=== PATIENT | male | born 1935 | race Caucasian/White ===

== ENCOUNTER 2017-12-04 09:16 | Outpatient (CLI) | payer MEDICARE ==
[2017-12-04 10:37] LABS: INR-International Normal Ratio 1.1; PTT 26.6 SEC (22.9-36.1); Prothrombin Time 14.2 SEC (12.0-14.7)
[2017-12-04 10:51] LABS: ALT (SGPT) 23 U/L (8-55); AST (SGOT) 34 U/L (5-34); Albumin 4.4 g/dL (3.4-4.8); Alkaline Phosphatase 55 U/L (40-150); Anion Gap 14 mmol/L (10-20); BUN (Urea Nitrogen) 30 mg/dL (8.4-25.7); Bilirubin, Total 0.5 mg/dL (0.2-1.2); Calc. Creatinine Clearance 0 mL/min (70-130); Calcium 9.3 mg/dL (7.8-10.44); Carbon Dioxide 21 mmol/L (23-31); Chloride 107 mmol/L (98-107); Estimated GFR-MDRD 32; Globulin 3.6 g/dL (2.4-3.5); Glucose 117 mg/dL (83-110); Potassium 5.7 mmol/L (3.5-5.1); Sodium 136 mmol/L (136-145)
[2017-12-04 10:54] LABS: #Basophils 0.1 thou/uL (0.0-0.2); #Eosinphils 0.3 thou/uL (0.0-0.7); #Monocytes 0.8 thou/uL (0.11-0.59); #Neutrophils 3.5 thou/uL (1.40-6.50); %Eosinophils 4.8 % (0.0-10.0); %Lymphocytes 29.6 % (21.0-51.0); %Monocytes 12.4 % (0.0-10.0); %Neutrophils 52.2 % (42.0-75.0); Hemoglobin 10.7 g/dL (14.0-18.0); Hypochromia SLIGHT = 6-15 cells (100X) (0-5/hpf); MDiff Complete? YES; Mean Corpuscular HGB CONC 31.8 g/dL (32.0-36.0); Mean Corpuscular Hemoglobin 23.7 pg (27.0-31.0); Mean Corpuscular Volume 74.5 fL (78.0-98.0); Mean Platelet Volume 9.9 fL (7.4-10.4); PLT Morphology Comment Appears Adequate; Platelet Count 294 thou/uL (130-400); Polychromasia SLIGHT = 2-3 cells (100X) (0-2/hpf); RBC Distribution Width 15.3 % (11.5-14.5); Red Blood Cell (RBC) Count 4.52 mill/uL (4.70-6.10); White Blood Cell (WBC) Count 6.7 thou/uL (4.8-10.8)
== END 2017-12-04 09:17 | disposition home or self-care (01) ==
LOC: LABBT 09:16
PROVIDERS: ATTEND Internal Medicine Cardiovascular Disease
DX: Z01.812 Encounter for preprocedural laboratory examination (principal); I20.9 Angina pectoris, unspecified; R94.31 Abnormal electrocardiogram [ECG] [EKG]
CPT/HCPCS: 80053; 85025; 85610; 85730

== ENCOUNTER 2017-12-28 05:38 | Inpatient (IN) | payer MEDICARE ==
[2017-12-27 10:28] VITALS: BMI 28.8
[2017-12-28] MEDS ORDERED: Albumin 5% 500 ML ONE (06:18)
[2017-12-28] MEDS ORDERED: Midazolam HCl 2 mg/2 ml Vial ONE (06:37)
[2017-12-28] MEDS ORDERED: Fentanyl 100 MCG/2 ML VIAL ONE (06:37)
[2017-12-28] MEDS ORDERED: Midazolam HCl 5 mg/5 ml Vial ONE (06:38)
[2017-12-28] MEDS ORDERED: Vecuronium 10 MG VIAL ONE ×2 (06:38→15:39)
[2017-12-28] MEDS ORDERED: Dexmedetomidine 200 MCG/2 ML VIAL ONE (06:38)
[2017-12-28 06:58] LABS: INR-International Normal Ratio 1.1; PTT 34.1 SEC (22.9-36.1); Prothrombin Time 14.1 SEC (12.0-14.7)
[2017-12-28] MEDS ORDERED: Heparin 10,000 UNITS/1 ML VIAL 30,000 UNITS in Sodium Chloride 0.9% 1,000 ML FS SCH (07:00)
[2017-12-28 07:09] LABS: Anion Gap 13 mmol/L (10-20); BUN (Urea Nitrogen) 19 mg/dL (8.4-25.7); Calc. Creatinine Clearance 50 mL/min (70-130); Calcium 9.2 mg/dL (7.8-10.44); Carbon Dioxide 24 mmol/L (23-31); Chloride 107 mmol/L (98-107); Estimated GFR-MDRD 49; Glucose 95 mg/dL (83-110); Potassium 4.6 mmol/L (3.5-5.1); Sodium 139 mmol/L (136-145)
[2017-12-28 07:15] LABS: #Basophils 0.1 thou/uL (0.0-0.2); #Eosinphils 0.5 thou/uL (0.0-0.7); #Lymphocytes 2.4 thou/uL (1.20-3.40); #Monocytes 0.7 thou/uL (0.11-0.59); %Basophils 1.2 % (0.0-1.0); %Eosinophils 6.2 % (0.0-10.0); %Lymphocytes 31.9 % (21.0-51.0); %Neutrophils 51.7 % (42.0-75.0); Mean Corpuscular HGB CONC 29.3 g/dL (32.0-36.0); Mean Corpuscular Hemoglobin 21.9 pg (27.0-31.0); Mean Platelet Volume 8.8 fL (7.4-10.4); Platelet Count 414 thou/uL (130-400); RBC Distribution Width 16.4 % (11.5-14.5); Red Blood Cell (RBC) Count 4.55 mill/uL (4.70-6.10); White Blood Cell (WBC) Count 7.7 thou/uL (4.8-10.8)
[2017-12-28 07:42] LABS: Hypochromia SLIGHT = 6-15 cells (100X) (0-5/hpf); MDiff Complete? YES; Microcytosis SLIGHT = 6-15 cells (100X) (0-5/hpf); Ovalocytes SLIGHT = 2-5 cells (100X) (0-1/hpf); PLT Morphology Comment Appears Increased; Polychromasia SLIGHT = 2-3 cells (100X) (0-2/hpf)
--- NOTE | 2017-12-28 08:23 | RAD ---
PORTABLE CHEST: History: Pre op. FINDINGS: Heart size is enlarged. Mediastinal structures are unremarkable. The lungs are clear of infiltrates. No signs of failure. IMPRESSION: Mild cardiomegaly. POS: [facility]
[2017-12-28] MEDS ORDERED: Fentanyl 100 MCG/2 ML VIAL SLOW IVP PRN ×2 (11:15)
[2017-12-28] MEDS ORDERED: Mag-Al 1200 mg/1200 mg/30 ML UDCUP PO PRN (11:15)
[2017-12-28] MEDS ORDERED: Promethazine HCl 25 MG/ML VIAL IM PRN (11:15)
[2017-12-28] MEDS ORDERED: Potassium Chloride 20 MEQ/100 ML PREMIX BAG IVPB PRN (11:15)
[2017-12-28] MEDS ORDERED: Ondansetron HCl/PF 4 MG/2 ML Vial IVP PRN (11:15)
[2017-12-28] MEDS ORDERED: Bisacodyl 5 MG TAB PO PRN (11:15)
[2017-12-28] MEDS ORDERED: Post-Op Insulin Drip Protocol IVPB ONE (11:15)
[2017-12-28] MEDS ORDERED: Nitroglycerin 50 MG/250 ML BOT 250 ML IVPB PRN (11:15)
[2017-12-28] MEDS ORDERED: Hetastarch 6% 500 ML 500 ML IVPB PRN (11:15)
[2017-12-28] MEDS ORDERED: Norepinephrine 8 MG/0.9% NS 250 ML IVPB PRN (11:15)
[2017-12-28] MEDS ORDERED: Bisacodyl 10 MG SUPP PR PRN (11:15)
[2017-12-28] MEDS ORDERED: Acetaminophen 325 MG TAB PO PRN (11:15)
[2017-12-28] MEDS ORDERED: hydrALAZINE 20 MG/ML VIAL SLOW IVP PRN (11:15)
[2017-12-28] MEDS ORDERED: Magnesium 2 GM/NS 0.9% 100 ML 2 GM in Premix Bag 1 BAG IVPB SCH (11:15)
[2017-12-28] MEDS ORDERED: Guaifenesin DM 100-10/5 ML UDCUP PO PRN (11:15)
--- NOTE | 2017-12-28 11:20 | OP ---
DATE OF PROCEDURE: 12/28/2017 PREOPERATIVE DIAGNOSES: Coronary artery disease/hypertension/hyperlipidemia. POSTOPERATIVE DIAGNOSES: Coronary artery disease/hypertension/hyperlipidemia. PROCEDURE: Coronary artery bypass grafting x3: 1. Left internal mammary artery 2.0 mm distal LAD -- good conduit and target. 2. Reverse saphenous vein to 2.0 mm diagonal -- good conduit and target. 3. Reverse saphenous vein to 1.25 mm OM1 -- good conduit, small target. This is not a redo target. SURGEON: Jasmeet Stoll M.D. and Mendoza Lozano M.D. ANESTHESIA: General endotracheal -- Naomi Ma M.D. PUMP TIME: 70 minutes. CROSS-CLAMP TIME: 32 minutes. LOW CORE TEMP: 32-degree Celsius. BEER MAKER: Jose Antonio Boucher. DRAINS: 24-Korean chest tubes x2. DRIPS: None. TRANSFUSIONS: None. DESCRIPTION OF PROCEDURE: After operative consent was obtained, the patient was brought to operating room and placed in the supine position on the operating table. Appropriate anesthetic monitor was p laced and general endotracheal anesthesia induced. Chest, abdomen and legs were prepped and draped i n the usual sterile fashion. Left greater saphenous vein was harvested with endoscopic technique. T he wound was irrigated and closed in layers. Median sternotomy was performed. Left internal mammary artery was harvested as a pedicle graft. The patient was systemically heparinized. Distal pedicle was divided and infused with papaverine. Thymic fat and pericardium were divided with electrocautery . Pericardial stay sutures were placed. Aortic and atrial cannulation was performed. After adequat e heparinization, the patient was placed on cardiopulmonary bypass. Distal targets were marked. Aor tic cross-clamp was applied and antegrade sanguinous cardioplegic arrest obtained. One liter of ante grade cold cardioplegia was given. Topical cold solution was used. Reverse saphenous vein was anast omosed to the OM in end-to-side fashion with running 7-0 Prolene suture. Anastomosis was tested and was hemostatic. Reverse saphenous vein was anastomosed to the diagonal in end-to-side fashion with r unning 7-0 Prolene suture. Anastomosis was tested and was hemostatic. Mammary artery was brought th rough a window in the pericardium and anastomosed to the LAD in end-to-side fashion with running 7-0 Prolene suture. On release of mammary clamps, good hooding in the anastomosis and good distal flow. Pedicle was secured with interrupted 6-0 Prolene suture. Cross-clamp was removed and partial occlud ing clamp placed. Saphenous veins were anastomosed individual punch sites with running 6-0 Prolene s uture. Partial occluding clamp was removed and grafts deaired. Anastomoses were inspected for hemos tasis, which was good. The patient was warmed and weaned from cardiopulmonary bypass. After resumpt ion of sinus rhythm, good hemodynamics, temperature greater than 36.5, bypass was discontinued. Temple sfusions were given. Protamine was administered. Decannulation was performed. Pursestring sutures secured. Aortic cannulation site was reinforced with 4-0 Prolene suture. After adequate hemostasis had been obtained, vancomycin paste placed on the sternal edges. 24-Korean chest tubes were placed i n the mediastinum. The sternum was closed with #7 wire. Sternum was treated with platelet-rich plas ma. Wires twisted. Wounds were irrigated, treated with platelet-poor plasma and closed in multiple layers. Needle, sponge and instrument counts were all reported as correct at the end of the procedur e.
[2017-12-28 11:36] LABS: Actual Bicarbonate (HCO3a) 22.9 mEq/L (22-28); Calcium, Ionized 1.12 mmol/L (1.12-1.30); Carboxyhemoglobin (COHb) 2.1 gm% (0.0-3.0); O2 Tension (PaO2) 143.6 mmHg (> 60.0); Potassium - ABG Lab 5.13 mmol/L (3.70-5.30); pH, Arterial 7.39 (7.35-7.45)
[2017-12-28] MEDS ORDERED: Dextrose 5% in Water 1,000 ML IV PRN (11:37)
[2017-12-28] MEDS ORDERED: Dextrose 50% Abboject 50 ML SYRINGE SLOW IVP PRN (11:37)
[2017-12-28 11:40] LABS: Puncture Site ALINE
[2017-12-28] MEDS ORDERED: Insulin Regular 300 UNITS/3 ML VIAL ONE (11:44)
[2017-12-28 11:50] LABS: #Eosinphils 0.3 thou/uL (0.0-0.7); #Lymphocytes 1.4 thou/uL (1.20-3.40); #Monocytes 0.3 thou/uL (0.11-0.59); #Neutrophils 6.6 thou/uL (1.40-6.50); %Basophils 0.5 % (0.0-1.0); %Eosinophils 3.2 % (0.0-10.0); %Lymphocytes 15.9 % (21.0-51.0); %Neutrophils 77.4 % (42.0-75.0); Hemoglobin 7.6 g/dL (14.0-18.0); Mean Corpuscular HGB CONC 30.1 g/dL (32.0-36.0); Mean Corpuscular Hemoglobin 22.5 pg (27.0-31.0); Mean Corpuscular Volume 74.9 fL (78.0-98.0); Mean Platelet Volume 8.4 fL (7.4-10.4); Platelet Count 224 thou/uL (130-400); RBC Distribution Width 16.2 % (11.5-14.5); Red Blood Cell (RBC) Count 3.38 mill/uL (4.70-6.10); White Blood Cell (WBC) Count 8.5 thou/uL (4.8-10.8)
[2017-12-28] MEDS: D5 1/2 NS w/20 mEq KCL 1,000 ML IV SCH (11:53)
[2017-12-28] MEDS: Ketorolac Tromethamine 30 MG/ML VIAL IVP SCH ×3 (11:54→23:59)
[2017-12-28 11:57] LABS: INR-International Normal Ratio 1.4; PTT 32.2 SEC (22.9-36.1); Prothrombin Time 17.5 SEC (12.0-14.7)
[2017-12-28] MEDS: Insulin Regular 300 UNITS/3 ML VIAL SC PRN ×3 (12:03→20:15)
[2017-12-28 12:10] LABS: Anion Gap 9 mmol/L (10-20); BUN (Urea Nitrogen) 17 mg/dL (8.4-25.7); Calc. Creatinine Clearance 65 mL/min (70-130); Calcium 8.1 mg/dL (7.8-10.44); Carbon Dioxide 23 mmol/L (23-31); Chloride 112 mmol/L (98-107); Estimated GFR-MDRD 66; Glucose 140 mg/dL (83-110); Potassium 5.1 mmol/L (3.5-5.1); Sodium 139 mmol/L (136-145)
[2017-12-28 12:12] LABS: Hypochromia SLIGHT = 6-15 cells (100X) (0-5/hpf); MDiff Complete? YES; Microcytosis SLIGHT = 6-15 cells (100X) (0-5/hpf); Ovalocytes SLIGHT = 2-5 cells (100X) (0-1/hpf); PLT Morphology Comment Appears Adequate; Polychromasia SLIGHT = 2-3 cells (100X) (0-2/hpf)
--- NOTE | 2017-12-28 14:15 | RAD ---
SINGLE VIEW CHEST: Date: 12/28/17 COMPARISON: 12/28/17 at 0619 hours. HISTORY: Status post open heart surgery. FINDINGS: Single view of the chest shows an enlarged but stable cardiomediastinal silhouette. There is an endot jostin tube with its tip at the lower border of the clavicles. The patient is status post sternotomy . A central venous catheter is seen with its tip in the superior vena cava. There is a mediastinal dr ain and a left chest tube. A NG tube is seen in the stomach. There is obscurity of the left costophre maria l angle which may represent atelectasis or a small left pleural effusion. IMPRESSION: Appropriate position of lines and tubes status post sternotomy. POS: [facility]
[2017-12-28] MEDS: CEFAZOLIN/Water 2 GM/20 ML SYRINGE SLOW IVP SCH ×2 (14:23→21:04)
--- NOTE | 2017-12-28 15:26 | EKG ---
Test Reason : PREOP Blood Pressure : / mmHG Vent. Rate : 070 BPM Atrial Rate : 070 BPM P-R Int : 202 ms QRS Dur : 114 ms QT Int : 402 ms P-R-T Axes : 058 -14 -61 degrees QTc Int : 434 ms Normal sinus rhythm Inferior infarct , age undetermined Abnormal ECG No previous ECGs available Confirmed by JAVID ONOFRE, DR. Martinez ([id number]) on 12/28/2017 3:25:28 PM Referred By: Lino PEREZ Confirmed By:DR. Michelle HUA MD
--- NOTE | 2017-12-28 15:30 | EKG ---
Test Reason : POST CABG Blood Pressure : / mmHG Vent. Rate : 060 BPM Atrial Rate : 060 BPM P-R Int : 250 ms QRS Dur : 104 ms QT Int : 476 ms P-R-T Axes : 044 012 -71 degrees QTc Int : 476 ms Sinus rhythm with 1st degree A-V block Inferior infarct (cited on or before 28-DEC-2017) Abnormal ECG When compared with ECG of 28-DEC-2017 06:54, (Unconfirmed) NH interval has increased Confirmed by JAVID ONOFRE, DR. Martinez ([id number]) on 12/28/2017 3:30:33 PM Referred By: Lino PEREZ Confirmed By:DR. Michelle HUA MD
[2017-12-28] MEDS ORDERED: Protamine Sulfate 250 MG/25 ML VIAL ONE (15:39)
[2017-12-28] MEDS ORDERED: Sodium Bicarb 50 MEQ/50 ML VIAL ONE (15:39)
[2017-12-28] MEDS ORDERED: Nitroglycerin 50 MG/250 ML BOT ONE (15:39)
[2017-12-28] MEDS ORDERED: Magnesium 5 GM/10 ML VIAL ONE (15:39)
[2017-12-28] MEDS ORDERED: Potassium Chloride 60 MEQ/30 ML VIAL ONE (15:39)
[2017-12-28] MEDS ORDERED: Lidocaine 2% PF 100 mg/5 ml Syringe ONE (15:39)
[2017-12-28] MEDS ORDERED: Cardioplegic Soln 1,000 ML BAG ONE (15:39)
[2017-12-28] MEDS ORDERED: PHENYLEPHRINE-NS 100 MCG/ML 10 ML SYRINGE ONE (15:39)
[2017-12-28] MEDS ORDERED: Aminocaproic Acid 5 GM/20 ML VIAL ONE (15:39)
[2017-12-28] MEDS ORDERED: Calcium Chloride 1 GM/10 ML Abboject SYRINGE ONE (15:39)
[2017-12-28] MEDS ORDERED: Mannitol 12.5 GM/50 ML ONE (15:39)
[2017-12-28] MEDS ORDERED: Heparin 5,000 UNITS/ML VIAL ONE (15:39)
[2017-12-28] MEDS ORDERED: Papaverine 60 MG/2 ML VIAL ONE (15:39)
[2017-12-28] MEDS ORDERED: Heparin 30,000 units/30 ml VIAL ONE (15:39)
[2017-12-28] MEDS ORDERED: Thrombin 5000 UNITS/5 ML VIAL ONE (15:39)
[2017-12-28 17:02] LABS: Hemoglobin 8.9 g/dL (14.0-18.0)
[2017-12-28 17:11] LABS: Potassium 5.1 mmol/L (3.5-5.1)
[2017-12-28 17:37] LABS: Base Excess (BEa) -2.7 mEq/L (-2.0 to +3.0); CO2 Tension 31.8 mmHg (35.0-45.0); Calcium, Ionized 1.09 mmol/L (1.12-1.30); Carboxyhemoglobin (COHb) 1.1 gm% (0.0-3.0); Hemoglobin (Hb) 9.3 g/dL (14.0-18.0); O2 Tension (PaO2) 120.7 mmHg (> 60.0); Potassium - ABG Lab 4.83 mmol/L (3.70-5.30); Puncture Site ALINE; pH, Arterial 7.44 (7.35-7.45)
[2017-12-28] MEDS: Famotidine/PF 20 mg/2ml Vial SLOW IVP SCH (20:16)
--- NOTE | 2017-12-28 21:57 | CON ---
DATE OF CONSULTATION: 12/28/2017 HISTORY OF PRESENT ILLNESS: Mr. Read is an 82-year-old male who underwent coronary artery bypass grafting today. He had a PAULINO to his LAD, a saphenous vein to his diagonal, and saphenous vein to his OM1. There was a small target. He was transferred to ICU for further care. He is still sedated from surgery and evaluated him today. PAST MEDICAL HISTORY: Remarkable for lipid disorder and hypertension as well as back surgery in the past. ALLERGIES: He has no drug allergies. SOCIAL HISTORY: He is a non-smoker, nondrinker. FAMILY HISTORY: He has one son and one daughter. He is a former smoker. Apparently, his has . REVIEW OF SYSTEMS: 10 point system review completed, not obtainable. PHYSICAL EXAMINATION: GENERAL: He appeared comfortable. He was sedated from surgery. VITAL SIGNS: His blood pressure 114/58, heart rate 60, respiratory rate in the teens. He is afebrile. HEENT: Pupils react. Sclerae is anicteric. NECK: Supple without lymphadenopathy. LUNGS: Clear anteriorly. HEART: Regular rhythm. His chest tubes in place. ABDOMEN: Soft and nontender. EXTREMITIES: Without asymmetry. His feet were warm. LABORATORY DATA: Hemoglobin this morning is 7.6. He received blood and is 8.9 at 1647. He has not had significant bleeding out of his chest tubes. Electrolytes were remarkable only for some mild hyperchloremia with a chloride of 112, BUN was 17, creatinine was 1.07. IMPRESSION: Status post coronary artery bypass grafting, clinically stable. He should wean as per protocol. This is a 70-minute consult, with greater than 50% of the time spent on the unit coordinating care. GISSELLE
[2017-12-29 05:06] LABS: #Eosinphils 0.1 thou/uL (0.0-0.7); #Lymphocytes 1.4 thou/uL (1.20-3.40); #Monocytes 0.8 thou/uL (0.11-0.59); #Neutrophils 4.8 thou/uL (1.40-6.50); %Basophils 0.6 % (0.0-1.0); %Eosinophils 1.4 % (0.0-10.0); %Lymphocytes 20.2 % (21.0-51.0); %Neutrophils 66.8 % (42.0-75.0); Hemoglobin 8.3 g/dL (14.0-18.0); Mean Corpuscular HGB CONC 30.4 g/dL (32.0-36.0); Mean Corpuscular Hemoglobin 23.1 pg (27.0-31.0); Mean Corpuscular Volume 75.8 fL (78.0-98.0); Mean Platelet Volume 9.3 fL (7.4-10.4); Platelet Count 248 thou/uL (130-400); RBC Distribution Width 16.1 % (11.5-14.5); Red Blood Cell (RBC) Count 3.59 mill/uL (4.70-6.10); White Blood Cell (WBC) Count 7.1 thou/uL (4.8-10.8)
[2017-12-29 05:33] LABS: Anion Gap 8 mmol/L (10-20); BUN (Urea Nitrogen) 20 mg/dL (8.4-25.7); Calc. Creatinine Clearance 52 mL/min (70-130); Calcium 7.8 mg/dL (7.8-10.44); Carbon Dioxide 22 mmol/L (23-31); Chloride 113 mmol/L (98-107); Estimated GFR-MDRD 51; Glucose 121 mg/dL (83-110); Potassium 4.4 mmol/L (3.5-5.1); Sodium 139 mmol/L (136-145)
[2017-12-29] MEDS: Ketorolac Tromethamine 30 MG/ML VIAL IVP SCH ×2 (05:51→12:01)
[2017-12-29] MEDS: Insulin Regular 300 UNITS/3 ML VIAL SC PRN (05:52)
[2017-12-29] MEDS: CEFAZOLIN/Water 2 GM/20 ML SYRINGE SLOW IVP SCH (05:52)
[2017-12-29] MEDS: HYDROcodone/Acetaminophen 5/325 mg Tablet PO PRN ×3 (05:53→21:17)
[2017-12-29] MEDS ORDERED: Magnesium 2 GM/NS 0.9% 100 ML 2 GM in Premix Bag 1 BAG IVPB SCH (09:00)
[2017-12-29] MEDS ORDERED: Aspirin 325 MG TAB PO SCH (09:00)
--- NOTE | 2017-12-29 09:37 | RAD ---
AP CHEST: History: Status post heart surgery. Date: 12-29-17 Comparison: 12-28-17 FINDINGS: AP chest demonstrates interval extubation of the patient and removal of the NG tube. Again, left sided chest tube is seen. A right subclavian central line is again noted. Mediastinal surgical drains in place. Mild cardiomegaly is seen. Sternotomy wires are seen. There continues to be blunting of the left costophrenic angle compatible with a small left sided pleu ral effusion. IMPRESSION: 1. Post thoracotomy changes. 2. The patient has been extubated. NG tube has been removed. Otherwise, unchanged since the previous day's exam. POS: [facility]
[2017-12-29] MEDS ORDERED: Magnesium Sulfate 2 GM in Sodium Chloride 0.9% 100 ML IVPB SCH (10:00)
[2017-12-29] MEDS: D5 1/2 NS w/20 mEq KCL 1,000 ML IV SCH (10:10)
[2017-12-29] MEDS: Famotidine/PF 20 mg/2ml Vial SLOW IVP SCH ×2 (10:10→21:01)
[2017-12-29] MEDS ORDERED: Bisacodyl 10 MG SUPP PR PRN (12:10)
[2017-12-29] MEDS ORDERED: Artificial Tears 18 DROP/0.9 ML EA EYE PRN (12:10)
[2017-12-29] MEDS ORDERED: diphenhydrAMINE 25 MG CAP PO PRN (12:10)
[2017-12-29] MEDS ORDERED: Bisacodyl 5 MG TAB PO PRN (12:10)
[2017-12-29] MEDS ORDERED: Mag-Al 1200 mg/1200 mg/30 ML UDCUP PO PRN (12:10)
[2017-12-29] MEDS ORDERED: Guaifenesin DM 100-10/5 ML UDCUP PO PRN (12:10)
[2017-12-29] MEDS ORDERED: Mineral Oil ENEMA PR PRN (12:10)
[2017-12-29] MEDS ORDERED: Zolpidem Tartrate 5 MG TAB PO PRN (12:10)
[2017-12-29] MEDS ORDERED: Nitroglycerin 0.4 MG TAB (25 Tab Bottle) SL PRN (12:10)
--- NOTE | 2017-12-29 12:47 | PDOC.CTH ---
Cardiology Progress Note - Subjective He is doing well. Has not had a BM yet. - Objective Vital Signs Temp Pulse Ox 12/29/17 08:00 97 12/29/17 07:00 98.8 F 12/29/17 04:00 98.4 F 12/29/17 03:36 98 Weight 195 lb 12/28/17 12/29/17 12/30/17 06:59 06:59 06:59 Intake Total 1410.9 240 Output Total 2235 30 Balance -824.1 210 - Physical Examination General/Neuro: alert & oriented x3, NAD Neck: no JVD present Lungs: unlabored respirations Heart: RRR Abdomen: NT/ND Extremities: + edema B (1+) - Telemetry Telemetry Rhythm: NSR - Labs Result Diagrams: 12/29/17 04:40 12/29/17 04:40 - Assessment/Plan 1. Multivessel CAD. 2. S/P CABG, PAULINO to LAD, SVG to OM, SVG to Diagonal 3. HTN 4. HLP PLAN: - Aspirin/statin for life. - Will add low dose BB. - ACEI if BP allows in next few days. - Increase PT as tolerated.
[2017-12-29] MEDS: Ferrous Sulfate 325 MG TAB PO SCH (17:31)
[2017-12-29] MEDS: Docusate 100 MG CAP PO SCH (21:01)
--- NOTE | 2017-12-29 21:04 | PRG ---
DATE OF SERVICE: 12/29/2017 SUBJECTIVE: Ez Read did well overnight. He was weaned per protocol. OBJECTIVE: VITAL SIGNS: He is afebrile, heart rate 70, respiratory rate 16, oximetry is 95 on room air. LUNGS: Clear. HEART: Regular rhythm. ABDOMEN: Soft. Intake and output is negative 824. LABORATORY AND DIAGNOSTIC DATA: Chest radiograph done this morning is unchanged compared to yesterda y except for the removal of the tubes. White count 7.1, hemoglobin 8.3, platelets 248. Electrolytes are unremarkable except for mild increase in chloride. Creatinine is 1.34. IMPRESSION: Status post coronary bypass grafting, doing well. Will move out of the Critical Care Un it today.
[2017-12-30] MEDS: HYDROcodone/Acetaminophen 5/325 mg Tablet PO PRN ×2 (05:01→20:34)
[2017-12-30 05:22] LABS: #Eosinphils 0.1 thou/uL (0.0-0.7); #Lymphocytes 1.6 thou/uL (1.20-3.40); #Neutrophils 6.9 thou/uL (1.40-6.50); %Basophils 0.4 % (0.0-1.0); %Eosinophils 0.8 % (0.0-10.0); %Lymphocytes 16.3 % (21.0-51.0); %Monocytes 10.2 % (0.0-10.0); %Neutrophils 72.2 % (42.0-75.0); Hemoglobin 9.3 g/dL (14.0-18.0); Mean Corpuscular HGB CONC 28.9 g/dL (32.0-36.0); Mean Corpuscular Hemoglobin 22.4 pg (27.0-31.0); Mean Corpuscular Volume 77.6 fL (78.0-98.0); Mean Platelet Volume 9.4 fL (7.4-10.4); Platelet Count 268 thou/uL (130-400); RBC Distribution Width 16.5 % (11.5-14.5); Red Blood Cell (RBC) Count 4.13 mill/uL (4.70-6.10); White Blood Cell (WBC) Count 9.6 thou/uL (4.8-10.8)
[2017-12-30 05:38] LABS: Anion Gap 13 mmol/L (10-20); BUN (Urea Nitrogen) 20 mg/dL (8.4-25.7); Calc. Creatinine Clearance 54 mL/min (70-130); Calcium 8.6 mg/dL (7.8-10.44); Carbon Dioxide 23 mmol/L (23-31); Chloride 109 mmol/L (98-107); Estimated GFR-MDRD 53; Glucose 106 mg/dL (83-110); Potassium 4.9 mmol/L (3.5-5.1); Sodium 140 mmol/L (136-145)
--- NOTE | 2017-12-30 08:45 | RAD ---
PORTABLE CHEST 1 VIEW: Date: 12/30/17 Time: 0523 hours HISTORY: Postop open heart surgery. FINDINGS/IMPRESSION: No significant interval change is seen since the previous day's exam. POS: [facility]
[2017-12-30] MEDS: Docusate 100 MG CAP PO SCH ×2 (09:22→20:34)
[2017-12-30] MEDS: Aspirin 325 mg Enteric Coated Tablet PO SCH (09:22)
[2017-12-30] MEDS: Ferrous Sulfate 325 MG TAB PO SCH ×2 (09:22→17:26)
[2017-12-30] MEDS: Famotidine/PF 20 mg/2ml Vial SLOW IVP SCH ×2 (09:22→20:34)
[2017-12-30] MEDS ORDERED: Magnesium Sulfate 2 GM in Sodium Chloride 0.9% 100 ML IVPB SCH (10:00)
[2017-12-30] MEDS ORDERED: Morphine 2 MG/ML SYRINGE SLOW IVP SCH (14:30)
--- NOTE | 2017-12-30 17:04 | PRG ---
DATE OF SERVICE: 12/30/2017 SUBJECTIVE: Mr. Read has no new complaints. He says he is feeling better. OBJECTIVE: VITAL SIGNS: He is afebrile, heart rate is 77, respiratory rate is 18, oximetry is 99 on room air, b lood pressure 154/67. Intake and outputs, negative 245. LUNGS: Clear. HEART: Regular rhythm. ABDOMEN: Soft. LABORATORY DATA: White count 9.6, hemoglobin 9.3, platelets 268,000. Sodium 140, potassium 4.9, chl oride 109, bicarbonate 23, BUN 20, creatinine 1.29. IMPRESSION AND PLAN: Status post coronary artery bypass grafting, clinically stable, now out of the Critical Care Unit. We will continue to follow.
--- NOTE | 2017-12-30 17:58 | PDOC.CTH ---
Cardiology Progress Note - Subjective No new issues. No BM yet. - Objective Vital Signs Temp Pulse Pulse Pulse Resp BP BP 12/30/17 16:52 88 75 129/62 152/65 H 12/30/17 16:33 98.6 F 74 18 12/30/17 12:39 77 73 154/67 H 152/68 H 12/30/17 12:14 98.3 F 77 18 12/30/17 08:25 98.7 F 72 20 BP Pulse Ox Pulse Ox Pulse Ox 12/30/17 16:52 91 L 12/30/17 16:33 159/69 H 96 12/30/17 12:39 92 L 93 L 12/30/17 12:14 165/65 H 99 12/30/17 08:25 141/68 H 93 L Admit Weight 195 lb Weight 194 lb 8 oz 12/29/17 12/30/17 12/31/17 06:59 06:59 06:59 Intake Total 1410.9 1020 Output Total 2235 1265 175 Balance -824.1 -245 -175 - Physical Examination General/Neuro: alert & oriented x3, NAD Neck: no JVD present Lungs: CTA, unlabored respirations Heart: RRR Abdomen: NT/ND Extremities: + edema B (1+) - Telemetry Telemetry Rhythm: NSR - Labs Result Diagrams: 12/30/17 04:47 12/30/17 04:47 - Assessment/Plan 1. Multivessel CAD. 2. S/P CABG, PAULINO to LAD, SVG to OM, SVG to Diagonal 3. HTN 4. HLP 5. Small run of 2-1 AV block while awake, asymptomatic. PLAN: - Aspirin/statin for life. - BB held due to 2-1 block. - ACEI to be added today. - Increase PT as tolerated.
[2017-12-31 05:23] LABS: Anion Gap 11 mmol/L (10-20); BUN (Urea Nitrogen) 22 mg/dL (8.4-25.7); Calc. Creatinine Clearance 57 mL/min (70-130); Carbon Dioxide 22 mmol/L (23-31); Chloride 108 mmol/L (98-107); Estimated GFR-MDRD 56; Glucose 95 mg/dL (83-110); Potassium 4.4 mmol/L (3.5-5.1); Sodium 137 mmol/L (136-145)
[2017-12-31 05:33] LABS: #Eosinphils 0.1 thou/uL (0.0-0.7); #Lymphocytes 1.5 thou/uL (1.20-3.40); #Monocytes 0.9 thou/uL (0.11-0.59); #Neutrophils 5.1 thou/uL (1.40-6.50); %Basophils 0.4 % (0.0-1.0); %Eosinophils 0.9 % (0.0-10.0); %Lymphocytes 19.9 % (21.0-51.0); %Monocytes 11.3 % (0.0-10.0); %Neutrophils 67.5 % (42.0-75.0); Hemoglobin 8.5 g/dL (14.0-18.0); Mean Corpuscular HGB CONC 29.4 g/dL (32.0-36.0); Mean Corpuscular Hemoglobin 22.7 pg (27.0-31.0); Mean Corpuscular Volume 77.2 fL (78.0-98.0); Mean Platelet Volume 9.6 fL (7.4-10.4); Platelet Count 255 thou/uL (130-400); RBC Distribution Width 16.7 % (11.5-14.5); Red Blood Cell (RBC) Count 3.73 mill/uL (4.70-6.10); White Blood Cell (WBC) Count 7.6 thou/uL (4.8-10.8)
[2017-12-31] MEDS: Docusate 100 MG CAP PO SCH ×2 (08:26→20:32)
[2017-12-31] MEDS: Famotidine/PF 20 mg/2ml Vial SLOW IVP SCH (08:26)
[2017-12-31] MEDS: Aspirin 325 mg Enteric Coated Tablet PO SCH (08:27)
[2017-12-31] MEDS: Lisinopril 10 MG TAB PO SCH (08:27)
[2017-12-31] MEDS: Ferrous Sulfate 325 MG TAB PO SCH ×2 (08:27→16:35)
--- NOTE | 2017-12-31 08:58 | RAD ---
AP VIEW OF CHEST: Date: 12/31/17 INDICATION: Postop open heart. COMPARISON: Prior study dated 12/30/17. IMPRESSION: Left-sided pleural parenchymal opacity is stable, suspicious for effusion and atelectasis or pneumoni a. Right subclavian central venous catheter is stable. Midline sternotomy changes are stable. Left-si ded thoracostomy tube has been removed. No pneumothorax is evident. Osseous structures are unchanged. POS: [facility]
[2017-12-31] MEDS ORDERED: Lisinopril 5 MG TAB PO SCH (09:00)
--- NOTE | 2017-12-31 09:35 | PRG ---
DATE OF SERVICE: 12/31/2017 HISTORY: Mr. Read is sitting up in the chair, feeling well, no chest pain or pressure, no complain ts. PHYSICAL EXAMINATION: VITAL SIGNS: Blood pressure 132/58, pulse 74. LUNGS: Clear. CARDIAC: Normal S1, normal S2, no murmur, rub or gallop. ABDOMEN: Soft, nontender. EXTREMITIES: No edema. Reviewing the rhythm strips, he has had no further second degree block. ASSESSMENT: 1. Status post bypass surgery, doing well. 2. Hypertension, controlled. 3. Second degree AV block, resolved. 4. Status post surgery, bypass. PLAN: 1. Continue current medical regimen. 2. Resume statin therapy. 3. Continue aspirin and lisinopril. 4. Probably home soon, doing extremely well.
[2017-12-31] MEDS: Famotidine 20 MG TAB PO SCH (20:32)
[2017-12-31] MEDS ORDERED: Atorvastatin Calcium 10 MG TAB PO SCH (21:00)
[2018-01-01] MEDS ORDERED: Furosemide 40 MG/4 ML VIAL SLOW IVP SCH (07:00)
[2018-01-01] MEDS ORDERED: Carvedilol 3.125 MG TAB PO SCH ×2 (08:00→17:00)
--- NOTE | 2018-01-01 08:39 | PRG ---
DATE OF SERVICE: 01/01/2018 HISTORY: Mr. Read is doing well. He is awake and alert. PHYSICAL EXAMINATION: VITAL SIGNS: Blood pressure 150/66, pulse 72, it is regular. LUNGS: Clear. CARDIAC: Normal S1, normal S2. ABDOMEN: Soft, nontender. EXTREMITIES: There is no edema. ASSESSMENT: 1. Status post coronary bypass grafting. 2. Renal insufficiency stage 2, renal failure now improved. 3. Hypertension. 4. Second degree AV block type 1, has not recurred. PLAN: 1. Continue lisinopril 10 mg a day. 2. He is going to receive furosemide 40 mg 1 time. 3. Increase Coreg to 6.25 mg twice a day. 4. Continue simvastatin. 5. Home soon, possibly tomorrow.
[2018-01-01] MEDS: Lisinopril 10 MG TAB PO SCH (08:51)
[2018-01-01] MEDS: Docusate 100 MG CAP PO SCH ×2 (08:51→21:26)
[2018-01-01] MEDS: Famotidine 20 MG TAB PO SCH ×2 (08:51→21:26)
[2018-01-01] MEDS: Aspirin 325 mg Enteric Coated Tablet PO SCH (08:52)
[2018-01-01 14:49] LABS: Actual Bicarbonate (HCO3a) 21.7 mEq/L (22-28); Analyzer IN Cardio OR; Base Excess (BEa) -3.2 mEq/L (-2.0 to +3.0); CO2 Tension 37.7 mmHg (35.0-45.0); Calcium, Ionized 1.14 mmol/L (1.12-1.30); Carboxyhemoglobin (COHb) 0.3 gm% (0.0-3.0); Hemoglobin (Hb) 9.5 g/dL (14.0-18.0); O2 Tension (PaO2) 417.5 mmHg (> 60.0); pH, Arterial 7.38 (7.35-7.45)
[2018-01-01 14:50] LABS: Actual Bicarbonate (HCO3a) 20.2 mEq/L (22-28); Analyzer IN Cardio OR; Base Excess (BEa) -3.5 mEq/L (-2.0 to +3.0); CO2 Tension 31.3 mmHg (35.0-45.0); Carboxyhemoglobin (COHb) 0.7 gm% (0.0-3.0); Hemoglobin (Hb) 8.8 g/dL (14.0-18.0); O2 Tension (PaO2) 354.9 mmHg (> 60.0); Potassium - ABG Lab 4.69 mmol/L (3.70-5.30); pH, Arterial 7.43 (7.35-7.45)
[2018-01-01 14:50] LABS: Actual Bicarbonate (HCO3a) 21.7 mEq/L (22-28); Analyzer IN Cardio OR; Base Excess (BEa) -4.3 mEq/L (-2.0 to +3.0); CO2 Tension 44.1 mmHg (35.0-45.0); Calcium, Ionized 1.02 mmol/L (1.12-1.30); Carboxyhemoglobin (COHb) 1.3 gm% (0.0-3.0); Hemoglobin (Hb) 6.4 g/dL (14.0-18.0); Potassium - ABG Lab 5.49 mmol/L (3.70-5.30); pH, Arterial 7.31 (7.35-7.45)
[2018-01-01 14:51] LABS: Analyzer IN Cardio OR; Base Excess (BEa) -2.4 mEq/L (-2.0 to +3.0); CO2 Tension 42.3 mmHg (35.0-45.0); Calcium, Ionized 1.02 mmol/L (1.12-1.30); Carboxyhemoglobin (COHb) 1.2 gm% (0.0-3.0); Hemoglobin (Hb) 7.3 g/dL (14.0-18.0); Potassium - ABG Lab 5.79 mmol/L (3.70-5.30); pH, Arterial 7.35 (7.35-7.45)
[2018-01-01 14:51] LABS: Actual Bicarbonate (HCO3v) 22 mEq/L (22-28); Analyzer IN Cardio OR; Base Excess -4.1 mEq/L (-2.0 to +3.0); Calcium, Ionized 0.98 mmol/L (1.16-1.32); Chloride (ABG LAB) 109 mmol/L (98-106); Hemoglobin (Hb) 6.5 g/dL (12.6-17.4); Potassium - ABG Lab 5.41 mmol/L (3.70-5.30); Sodium 134.7 mmol/L (133-146); pH (venous) 7.29 (7.32-7.43)
[2018-01-01 14:52] LABS: Analyzer IN Cardio OR; Base Excess (BEa) -2.9 mEq/L (-2.0 to +3.0); CO2 Tension 38.8 mmHg (35.0-45.0); Calcium, Ionized 1.12 mmol/L (1.12-1.30); Carboxyhemoglobin (COHb) 1.2 gm% (0.0-3.0); Hemoglobin (Hb) 7.4 g/dL (14.0-18.0); O2 Tension (PaO2) 376.7 mmHg (> 60.0); Potassium - ABG Lab 5.27 mmol/L (3.70-5.30); Puncture Site ALINE; pH, Arterial 7.37 (7.35-7.45)
[2018-01-01 14:53] LABS: Puncture Site ALINE
[2018-01-01 14:53] LABS: Puncture Site ALINE
[2018-01-01 14:54] LABS: Puncture Site ALINE
[2018-01-01 14:55] LABS: Puncture Site ALINE
--- NOTE | 2018-01-01 15:46 | PRG ---
DATE OF SERVICE: 01/01/2018 SUBJECTIVE: Ms. Read is doing well. He does walk with physical therapy and he had just returned t o his room. OBJECTIVE: VITAL SIGNS: Blood pressure 145/64, heart rate 75, respiratory rate is 18, oximetry is 96. GENERAL: He is in no distress. Intake and output is positive 1125. LUNGS: Clear. CARDIOVASCULAR: Regular rhythm. ABDOMEN: Soft and nontender. EXTREMITIES: Without asymmetry or edema. He has a hose on his right leg. IMPRESSION: 1. Status post coronary bypass grafting. 2. Chronic kidney disease. 3. Hypertension. His creatinine is 1.23. His hemoglobin remains stable at 8.5 yesterday. There is no CBC today. PLAN: Continue physical therapy.
[2018-01-01] MEDS: Carvedilol 6.25 MG TAB PO SCH (18:20)
[2018-01-01] MEDS ORDERED: Atorvastatin Calcium 20 MG TAB PO SCH (21:00)
--- NOTE | 2018-01-02 06:44 | DIS ---
DATE OF ADMISSION: 12/28/2017 DATE OF DISCHARGE: 01/02/2018 DIAGNOSES: 1. Coronary artery disease. 2. Hypertension. 3. Dyslipidemia. PROCEDURES: Coronary artery bypass grafting x3: 1) left internal mammary artery to LAD; 2) reverse s aphenous vein to diagonal; 3) reversed saphenous vein to OM1. DESCRIPTION OF HOSPITAL STAY: Mr. Read was admitted for elective bypass. He has done well postope ratively and being discharged to home in good condition. DISCHARGE MEDICATIONS: 1. Aspirin 325 mg every day. 2. Coreg 6.25 mg b.i.d. 3. Zocor 20 mg at bedtime. 4. Lisinopril 10 mg daily. 5. [place] 5/325 1-2 q.6 hours p.r.n. pain. FOLLOWUP: Follow up is with me in [address] Butts in a month.
[2018-01-02 07:49] VITALS: TEMP 98.4
[2018-01-02] MEDS: Aspirin 325 mg Enteric Coated Tablet PO SCH (08:16)
[2018-01-02] MEDS: Famotidine 20 MG TAB PO SCH (08:16)
[2018-01-02] MEDS: Carvedilol 6.25 MG TAB PO SCH (08:16)
[2018-01-02] MEDS: Lisinopril 10 MG TAB PO SCH (08:16)
[2018-01-02] MEDS: Docusate 100 MG CAP PO SCH (08:16)
[2018-01-02 10:42] VITALS: BP 144/66
--- NOTE | 2018-01-02 11:09 | PRG ---
DATE OF SERVICE: 01/02/2018 SUBJECTIVE: Mr. Read is feeling well. His blood pressure did drop after sitting in a chair for qu ite some time today, but it is back to 140 systolic now. He has no chest pain or shortness of breath . OBJECTIVE: LUNGS: Clear. CARDIAC: Normal S1, normal S2. ABDOMEN: Soft and nontender. ASSESSMENT: 1. Status post bypass surgery. 2. Transient decrease in blood pressure, seemed to be related to carvedilol. PLAN: 1. Reduce carvedilol to 3.125 mg twice a day. 2. Lisinopril 10 mg a day. 3. Atorvastatin 20 mg a day. 4. Aspirin 325 mg daily. 5. Okay to go home. He will follow up with Dr. Stoll as well as our office.
[2018-01-02] MEDS ORDERED: Carvedilol 3.125 MG TAB PO SCH (17:00)
[2018-01-02] MEDS ORDERED: Carvedilol 6.25 MG TAB PO SCH (17:00)
== END 2018-01-02 12:32 | disposition home or self-care (01) | DRG 236 ==
LOC: SURG A 05:38 → CCU 10:43 → 2NO 12-29 13:33
PROVIDERS: ADMIT Thoracic Surgery (Cardiothoracic Vascular Surgery); ATTEND Thoracic Surgery (Cardiothoracic Vascular Surgery)
PROC: 02100Z9 Bypass Coronary Artery, One Artery from Left Internal Mammary, Open Approach (ICD-10-PCS; principal; 2017-12-28)
PROC: 021109W Bypass Coronary Artery, Two Arteries from Aorta with Autologous Venous Tissue, Open Approach (ICD-10-PCS; 2017-12-28)
PROC: 06BQ4ZZ Excision of Left Saphenous Vein, Percutaneous Endoscopic Approach (ICD-10-PCS; 2017-12-28)
PROC: 5A1221Z Performance of Cardiac Output, Continuous (ICD-10-PCS; 2017-12-28)
DX: I25.10 Atherosclerotic heart disease of native coronary artery without angina pectoris (principal); I10 Essential (primary) hypertension; E78.5 Hyperlipidemia, unspecified; I44.1 Atrioventricular block, second degree; Z79.82 Long term (current) use of aspirin; Z87.891 Personal history of nicotine dependence
CPT/HCPCS: 36415; 36416; 36430; 71045; 80048; 82805; 85025; 85610; 85730; 86850; 86900; 86901; 93005; 93010; 93798; 94002; A4216; J1642; J1644; J1815; J1885; J1940; J2001; J2150; J2250; J2270; J2440; J2720; J3010; J3370; J3475; J3480; J7050; P9016; P9045; S0017; S0028